=== PATIENT | female | born 1970 | race Caucasian/White ===

== ENCOUNTER → 2019-07-27 08:54 | Outpatient (CLI) | payer MEDICARE, MEDICAID, SELFPAY ==
--- NOTE | ~2019-07-27 | XR_ITS ---
XR cervical spine 4-5V 07/27/2019 09:25 Indication: Down's syndrome. Neck pain. Procedure: 4 views cervical spine Comparison: No prior study Findings: There is disc narrowing and endplate degenerative changes at C5-6. There is disc narrowing at C2-3. There is degenerative anterolisthesis at C3-4. There is mild multilevel facet hypertrophy. L elver apices are normal. Odontoid process within normal limits. Impression: 1: Moderate cervical spondylosis. Reviewed, dictated and finalized at location B. 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
== END ==
PROVIDERS: Visit Provider Family Medicine
DX: M47.812 Spondylosis without myelopathy or radiculopathy, cervical region (principal); Q90.9 Down syndrome, unspecified
CPT/HCPCS: 72050

== ENCOUNTER 2020-10-22 13:34 | Outpatient (CLI) | payer MEDICARE, MEDICAID, SELFPAY ==
--- NOTE | ~2020-10-22 | US_ITS ---
EXAMINATION: US venous doppler [facility] EXAM DATE: 10/22/2020 14:19 INDICATION: Edema, leg swelling. TECHNIQUE: Multiple grayscale, color flow and Doppler images of the left lower extremity deep venous system were obtained and reviewed. There is no prior study for comparison. FINDINGS: The left common femoral, femoral and profunda veins demonstrate normal color flow, respirat ory variation, augmentation and compressibility. Compressibility, color flow confirmed within the le ft popliteal, posterior tibial, peroneal, and greater saphenous veins. IMPRESSION: 1. No left lower extremity deep venous thrombosis. Reviewed, dictated and finalized at location B.
== END 2020-10-22 13:35 | disposition home or self-care (01) ==
PROVIDERS: Visit Provider Nurse Practitioner
DX: R60.9 Edema, unspecified (principal)
CPT/HCPCS: 93971

== ENCOUNTER 2021-06-20 23:01 | Emergency (ER) | payer MEDICARE, MEDICAID, SELFPAY ==
--- NOTE | ~2021-06-20 | XR_ITS ---
EXAMINATION: XR chest 1V portable DATE: 06/21/2021 00:22 INDICATION: Altered mental status. Jerking type movements. TECHNIQUE: A single frontal view of the chest was obtained. COMPARISON: Chest 2 views 10/06/2017 FINDINGS: There are airspace opacities in the right perihilar region and the lower lung zones. No ple ural effusion or pneumothorax. The heart size is normal. There is a left chest wall pacer with leads in the right atrium and right ventricle. IMPRESSION: 1. Airspace opacities in right perihilar region and the lower lung zones, consistent with atelectasis versus pneumonia. Reviewed, dictated and finalized at location A. HAND IMPRESSION: 1. Airspace opacities in right perihilar region and the lower lung zones, consi stent with atelectasis versus pneumonia.
--- NOTE | ~2021-06-20 | CT_ITS ---
EXAMINATION: CT brain wo con DATE: 06/21/2021 00:33 INDICATION: Altered mental status. TECHNIQUE: Computed tomography (CT) of the head was performed without intravenous contrast. The mA wa s adjusted according to patient size. Iterative reconstruction technique was employed. The dose-lengt h product was 529.67 mGy-cm. COMPARISON: None FINDINGS: There is no intracranial hemorrhage, acute infarction, or abnormal intracranial mass lesion . There is an arachnoid cyst posterior to the cerebellum measuring 6.3 x 2.1 x 3.6 cm. The ventricles are normal in size. The paranasal sinuses are clear. The orbits are normal. The mastoid air cells ar e normal. IMPRESSION: 1. Arachnoid cyst posterior to the cerebellum. Reviewed, dictated and finalized at location A. LE DATABASE CONSULTANT
[2021-06-20 23:04] VITALS: BP 97/65; PULSE 79; RESP 18; TEMP 36.6; O2SAT 98
--- NOTE | 2021-06-20 23:19 | ECG_ITS ---
Measurements Intervals [place] Rate: 80 P: 118 [place]: 168 QRS: 54 QRSD: 88 T: 46 QT: 382 QTc: 443 Interpretive Statements ELECTRONIC ATRIAL PACEMAKER MINIMAL Q WAVES- ANTEROLAT/INF LEADS BASELINE ARTIFACT- II, III, AVR, AVF, V1-V6 ATYPICAL ECG Electronically Signed On 06-21-2021 7:23:16 CHAIRMAN PRESIDENT AND CHIEF EXECUTIVE OFFICER by Jose GRANGER
[2021-06-20 23:46] LABS: Alveolar/Arterial O2 Gradient 38.4 mmHg; Base Excess ABG 4.2 mEq/l (+/-2.0); Fractional Inspired Oxygen 21 %; HCO3 ABG 29.3 mEq/l (22.0-26.0); Oxygen Content ABG 18.4 %vol (16.0-22.0); Oxyhemoglobin 90.4 % THb (90.0-100.0); PCO2 ABG 45.6 mmHg (35.0-45.0); PO2 ABG 56.7 mmHg (80.0-100.0); Total Hemoglobin 14.5 g/dL (12.0-18.0); pH ABG 7.426 (7.350-7.450)
[2021-06-20 23:47] LABS: Device ROOM AIR; Modified Allen's Test Pass; Site Drawn LEFT RADIAL
[2021-06-21] MEDS: SODIUM CHLORIDE 0.9% IV 1,000 ML 999 ML IV CONT (00:18)
[2021-06-21 00:23] LABS: Basophils Absolute Auto 0.1 K/mm3 (0.0-0.1); Basophils Percent Auto 1.5 % (0.2-1.2); Eosinophils Absolute Auto 0.1 K/mm3 (0-0.3); Eosinophils Percent Auto 1.2 % (0-4.4); Hematocrit 41.3 % (37.0-47.0); Hemoglobin 13.6 g/dL (12.0-15.0); Immature Granulocyte Absolute 0.01 K/mm3 (0.00-0.031); Immature Granulocyte Percent A 0.2 % (0-0.5); Lymphocytes Absolute Auto 3.34 K/mm3 (0.9-3.2); Lymphocytes Percent Auto 51.3 % (18.3-44.2); Mean Corpuscular HGB Conc 32.9 g/dl (32-36); Mean Corpuscular Hemoglobin 30.9 pg (26-34); Mean Corpuscular Volume 93.9 fl (80-100); Mean Platelet Volume 9.5 fl (7.4-10.4); Monocytes Absolute Auto 0.5 K/mm3 (0.1-0.6); Monocytes Percent Auto 8.1 % (2.6-8.5); Neutrophils Absolute Auto 2.5 K/mm3 (1.3-6.7); Neutrophils Percent Auto 37.7 % (45.5-73.1); Platelet Count Result 243 k/mm3 (150-375); Red Cell Distribution Width 14.2 % (11.5-14.5); White Blood Count 6.5 K/mm3 (4.5-10.0)
[2021-06-21 00:34] LABS: INR 1.1; Prothrombin Time 13.9 Seconds (11.1-14.7)
[2021-06-21 00:35] LABS: Partial Thromboplastin Time 29.7 SECONDS (22.3-36.8)
[2021-06-21 00:39] LABS: Alanine Aminotransferase 14 U/L (4-35); Alkaline Phosphatase 88 U/L (38-126); Anion Gap 6 mmol/L (8-16); Aspartate Amino Transferase 28 U/L (14-36); Bilirubin,Total 0.6 mg/dL (0.2-1.3); Blood Urea Nitrogen 15 mg/dL (7-17); Calcium 9.3 mg/dL (8.4-10.2); Carbon Dioxide 26 mmol/L (22-30); Chloride 107 mmol/L (98-107); Estimated Glomerular Filt Rate > 60; Glucose 95 mg/dL (65-110); Lactic Acid Reflex 0.6 mmol/L (0.7-2.1); Lipase 43 U/L (23-300); Magnesium 2.3 mg/dL (1.6-2.3); Potassium 3.9 mmol/L (3.4-5.0); Sodium 139 mmol/L (137-145)
[2021-06-21 00:50] LABS: Troponin I < 0.012 ng/mL (0.000-0.034)
[2021-06-21 00:58] VITALS: PULSE 78; RESP 14; O2SAT 100
--- NOTE | 2021-06-21 00:59 | PC.NURSE ---
RN placed straight cath on pt, minimal urine return observed, about 5ml of urine upon return, Pt also arrived with dry diaper from alf, RN will obtain urine sample upon adequate urine output.
[2021-06-21 01:00] VITALS: O2SAT 100
[2021-06-21 01:27] LABS: Add Urine Microscopic? YES; Appearance Urine Clear (Clear); Bacteria Urine Trace /hpf; Bilirubin Urine Negative (Negative); Blood Urine 2+ (Negative); Calcium Oxalate Crystals Urine Present /hpf; Color Urine Yellow (Yellow); Glucose Urine UA Negative (Negative); Ketones Urine Negative (Negative); Leukocyte Esterase Ur 1+ LEU/UL (Negative); Mucus Urine Rare /lpf; Nitrate Urine Negative (Negative); Protein Urine Negative (Negative); RBC Urine 21-50 /hpf (0-2); Specific Grav Ur 1.026 (1.001-1.035); Squamous Epithelial Cell Urine Many /hpf (Few); Urobilinogen Urine Negative mg/dL (<2.0); WBC Urine 21-30 /hpf
[2021-06-21 01:33] LABS: SARS-CoV-2 RNA PCR Negative
--- NOTE | 2021-06-21 02:53 | ED.GENADULT ---
HPI - General Adult General Chief complaint: Seizure Stated complaint: seizure-like activity Time Seen by Provider: 06/20/21 23:09 History of Present Illness HPI narrative: Patient is a 50-year-old female presents the emergency department with chief complaint of possible seizure. Patient is a resident of a local custodial and has reported history of seizures of which she has a as needed order for a benzodiazepine. Patient is currently not on any antiepileptics and apparently was seen at another facility for seizures recently. Per the custodial documentation the patient has history of nonepileptiform seizures. Patient currently has no complaints at this time and has had no seizure activity in the emergency department Related Data Home Medications Medication Instructions Recorded Confirmed aripiprazole 5 mg 06/21/21 Allergies Allergy/AdvReac Type Severity Reaction Status Date / Time No Known Allergies Allergy Verified 12/10/19 09:25 Review of Systems Review of Systems: A 10 system review of systems was completed on the patient and is negative except for what is stated in the HPI. Nursing and ancillary documentation was reviewed. PMFSH Past Medical History Medical History Depression Social History Social History Smoking status: Never smoker Alcohol intake: never Substance use: never Exam Narrative: GENERAL: Well-appearing, well-nourished, and in no acute distress. HEAD: Normocephalic, atraumatic. EYES: PERRLA and EOMI. ENT: Nares clear, no rhinorrhea or epistaxis. Mucous membranes moist. NECK: Supple. CHEST: Clear to auscultation. No respiratory distress. HEART: Regular rate and rhythm. No murmur heard. Normal peripheral pulses. ABDOMEN: Soft, nontender, nondistended, normal active bowel sounds. EXTREMITIES: Normal range of motion. No edema. SKIN: Warm, dry, no rash. NEURO: No focal deficits. Alert to baseline. PSYCH: Normal mood and affect. Course Course Emergency Course: Patient's laboratory studies do show evidence of a urinary tract infection. Otherwise labs are within normal limits. The patient has had no seizure activity in the emergency department Vital Signs Vital signs: Vital Signs Temperature 36.6 C 06/20/21 23:04 Pulse Rate 79 06/20/21 23:04 Respiratory Rate 18 06/20/21 23:04 Blood Pressure 97/65 L 06/20/21 23:04 Pulse Oximetry 98 06/20/21 23:04 Temperature 36.6 C 06/20/21 23:04 Pulse Rate 78 06/21/21 00:58 Respiratory Rate 14 06/21/21 00:58 Blood Pressure 97/65 L 06/20/21 23:04 Pulse Oximetry 100 06/21/21 01:00 Medical Decision Making Vital Signs Vital Signs: Vital Signs Temperature 36.6 C 06/20/21 23:04 Pulse Rate 79 06/20/21 23:04 Respiratory Rate 18 06/20/21 23:04 Blood Pressure 97/65 L 06/20/21 23:04 Pulse Oximetry 98 06/20/21 23:04 Temperature 36.6 C 06/20/21 23:04 Pulse Rate 78 06/21/21 00:58 Respiratory Rate 14 06/21/21 00:58 Blood Pressure 97/65 L 06/20/21 23:04 Pulse Oximetry 100 06/21/21 01:00 Lab Data Result diagrams: 06/21/21 00:09 06/21/21 00:09 Labs: Lab Results 06/21/21 06/21/21 06/21/21 Range/Units 00:09 00:09 00:09 WBC 6.5 (4.5-10.0) K/mm3 RBC 4.40 (4.2-5.4) M/mm3 Hgb 13.6 (12.0-15.0) g/dL Hct 41.3 (37.0-47.0) % MCV 93.9 (80-100) fl MCH 30.9 (26-34) pg MCHC 32.9 (32-36) g/dl RDW 14.2 (11.5-14.5) % Plt Count 243 (150-375) k/mm3 MPV 9.5 (7.4-10.4) fl Immature Gran % (Auto) 0.2 (0-0.5) % Neut % (Auto) 37.7 L (45.5-73.1) % Lymph % (Auto) 51.3 H (18.3-44.2) % [place] % (Auto) 8.1 (2.6-8.5) % Eos % (Auto) 1.2 (0-4.4) % Baso % (Auto) 1.5 H (0.2-1.2) % Lymph # (Auto) 3.34 H (0.9-3.2) K/mm3 [place] # (Auto) 0.5 (0.1-0.6) K/mm3 Eos
[2021-06-21] MEDS: CEPHALEXIN 500 MG CAPSULE PO (03:18)
--- NOTE | 2021-06-21 03:22 | PC.NURSE ---
[facility] called this ED to get update on pt condition. This RN spoke with ED MD, who reported that pt's test results looked good and the plan was to send her back to facility with instructions to f/u c pt's neurologist. no seizure-like activity noted during pt stay in ED.
--- NOTE | 2021-06-21 03:41 | PC.NURSE ---
called [facility] to request transport. ETA [id number]
--- NOTE | 2021-06-21 03:54 | PC.NURSE ---
called [facility] and [facility] to request transport. Neither Service available.
--- NOTE | 2021-06-21 05:47 | PC.NURSE ---
Pt continues awaiting for transport.
[2021-06-21 06:01] VITALS: BP 145/100; PULSE 76; RESP 14; TEMP 36.4; O2SAT 98
[2021-06-21 06:33] VITALS: BP 145/100; PULSE 84; RESP 14; TEMP 36.6; O2SAT 100
== END 2021-06-21 06:35 ==
PROVIDERS: Emergency Provider Emergency Medicine; PCP Family Medicine
DX: R56.9 Unspecified convulsions (principal); N30.00 Acute cystitis without hematuria; Z20.822 Contact with and (suspected) exposure to COVID-19; F32.A Depression, unspecified; Z95.0 Presence of cardiac pacemaker; R91.8 Other nonspecific abnormal finding of lung field; G93.0 Cerebral cysts
CPT/HCPCS: 36415; 36600; 70450; 71045; 80053; 81001; 81025; 82805; 83605; 83690; 83735; 84484; 85025; 85610; 85730; 87086; 87088; 93005; 96360; 99284; A9270; C9803; J7030; U0003; U0005

== ENCOUNTER 2021-07-15 15:24 | Inpatient (IN) | payer MEDICARE, MEDICAID, SELFPAY ==
--- NOTE | ~2021-07-15 | XR_ITS ---
EXAMINATION: XR chest 1V portable INDICATION: Cough TECHNIQUE: Portable AP chest at 1550 hours COMPARISON: 06/21/2021 FINDINGS: The lungs are free of acute opacities. There is no pleural effusion or pneumothorax. The ca rdiomediastinal silhouette is normal. A dual-lead cardiac pacemaker of the left chest wall ends with leads in expected locations. IMPRESSION: 1. No acute cardiopulmonary abnormality. Reviewed, dictated and finalized at location A. 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
[2021-07-15 15:24] VITALS: BP 104/53; PULSE 86; RESP 16; TEMP 36.9; O2SAT 100
--- NOTE | 2021-07-15 16:08 | ED.GENADULT ---
HPI - General Adult General Chief complaint: Unspecified Stated complaint: Request G Tube Placement Time Seen by Provider: 07/15/21 15:27 Source: EMS and RN notes reviewed Mode of arrival: EMS Limitations: dementia History of Present Illness HPI narrative: Patient is a 50-year-old female sent here for feeding tube placement. According to halfway staff patient has not been eating or drinking for the past few days, her PCP at the halfway recommended hospice but POA insisted on sending her to the hospital for feeding tube placement. Patient has a history of dementia and Down syndrome, unable to get any history from the patient. Related Data Home Medications Medication Instructions Recorded Confirmed albuterol sulfate 2 puff INHALATION QID 07/15/21 aripiprazole 5 mg PO DAILY 07/15/21 calcium carbonate-vit D3-min 1 tablet PO BID 07/15/21 cetirizine 10 mg PO DAILY 07/15/21 cholecalciferol (vitamin D3) 50 mcg PO DAILY 07/15/21 donepezil 5 mg PO HS 07/15/21 escitalopram oxalate 20 mg PO DAILY 07/15/21 fluticasone propionate [Flovent INHALATION 07/15/21 Diskus] [id number]-rtptapbha-[id number] 1 inh INHALATION DAILY 07/15/21 [Trelegy Ellipta] levetiracetam [Keppra] 500 mg PO BID 07/15/21 lorazepam [Ativan] 0.5 mg PO BID PRN 07/15/21 melatonin 10 mg PO HS PRN 07/15/21 midodrine mg 07/15/21 mirtazapine 15 mg PO HS 07/15/21 pantoprazole [Protonix] 40 mg PO BID 07/15/21 sennosides-docusate sodium [Senna 1 tab-cap PO HS 07/15/21 Plus] Allergies Allergy/AdvReac Type Severity Reaction Status Date / Time No Known Allergies Allergy Verified 07/15/21 15:37 Review of Systems Review of Systems: All others negative All systems reviewed & are unremarkable except as noted in HPI and below PMFSH Past Medical History Medical History Depression Social History Social History Smoking status: Never smoker Alcohol intake: never Substance use: never Comments Past medical history: Dementia, Down syndrome, seizure Family history: Unknown Social history: Lives at a halfway Exam Const: General: alert and awake; No ill appearing Nutritional Appearance: well nourished Limitations: other limitations (Dementia, Down syndrome, unable to follow any commands) HENMT: Head: normal to inspection, normocephalic and atraumatic Ears: hearing grossly normal bilaterally, TM normal on the right and TM normal on the left General nose exam: Normal external nose present, Normal nares present and No nasal discharge present Face and sinus: normal facial exam Mouth: Yes lip normal Eyes: General: appearance normal, both eyes and all related structures Pupils: Equal, round and reactive pupils present EOM: EOMs intact bilaterally Neck: Neck: normal visual inspection and full ROM Chest: Chest palpation & inspection: normal inspection of the chest Resp: Effort & Inspection: normal respiratory effort, able to speak in complete sentences, no respiratory distress and not tachypneic Auscultation: clear to auscultation bilaterally, no crackles, no rales, no rhonchi and no wheezes Cardio: Rate: regular rate Rhythm: regular rhythm GI: Inspection: normal to inspection GI Palp: No abdominal tenderness, Yes Soft to palpation, No Tenderness to palpation present (GI), No Guarding due to palpation present (GI), No Rigid due to palpation and No Rebound tenderness present Auscultation: normal bowel sounds Skin: General skin exam: elasticity normal and turgor normal Neuro: General: tone normal, moves all extremities and Normal light touch and pain sensation Cranial nerves: Yes Equal, round and reactive pupils present Speech: No Abnormal speech present Sensory Exam: No Sensory deficit (Neuro) Extrem: General: normal to inspection, full ROM and capillary refill normal Psych: Appearance: grossly normal and well
[2021-07-15] MEDS: SODIUM CHLORIDE 0.9% IV 1,000 ML 999 ML IV CONT (16:33)
[2021-07-15 16:38] LABS: Basophils Absolute Auto 0.1 K/mm3 (0.0-0.1); Basophils Percent Auto 1.1 % (0.2-1.2); Eosinophils Percent Auto 0.2 % (0-4.4); Hematocrit 51.5 % (37.0-47.0); Hemoglobin 16.2 g/dL (12.0-15.0); Immature Granulocyte Absolute 0.02 K/mm3 (0.00-0.031); Immature Granulocyte Percent A 0.2 % (0-0.5); Lymphocytes Absolute Auto 2.43 K/mm3 (0.9-3.2); Lymphocytes Percent Auto 25.5 % (18.3-44.2); Mean Corpuscular HGB Conc 31.5 g/dl (32-36); Mean Corpuscular Hemoglobin 30.5 pg (26-34); Mean Corpuscular Volume 96.8 fl (80-100); Mean Platelet Volume 10.2 fl (7.4-10.4); Monocytes Absolute Auto 0.8 K/mm3 (0.1-0.6); Monocytes Percent Auto 8.2 % (2.6-8.5); Neutrophils Absolute Auto 6.2 K/mm3 (1.3-6.7); Neutrophils Percent Auto 64.8 % (45.5-73.1); Platelet Count Result 229 k/mm3 (150-375); Red Blood Count 5.32 M/mm3 (4.2-5.4); Red Cell Distribution Width 14.8 % (11.5-14.5); White Blood Count 9.5 K/mm3 (4.5-10.0)
[2021-07-15 16:44] LABS: Add Urine Microscopic? YES; Appearance Urine Clear (Clear); Bacteria Urine Trace /hpf; Bilirubin Urine Negative (Negative); Blood Urine Negative (Negative); Color Urine Amber (Yellow); Glucose Urine UA Negative (Negative); Ketones Urine Negative (Negative); Leukocyte Esterase Ur Negative LEU/UL (Negative); Mucus Urine Rare /lpf; Nitrate Urine Negative (Negative); Protein Urine 1+ mg/dL (Negative); Squamous Epithelial Cell Urine Rare /hpf (Few); WBC Urine 0-3 /hpf
[2021-07-15 16:48] LABS: Specific Grav Ur 1.032 (1.001-1.035)
[2021-07-15 16:49] LABS: Alanine Aminotransferase 38 U/L (4-35); Albumin Level 4.4 g/dL (3.5-5.1); Alkaline Phosphatase 86 U/L (38-126); Anion Gap 8 mmol/L (8-16); Aspartate Amino Transferase 36 U/L (14-36); Bilirubin,Total 0.8 mg/dL (0.2-1.3); Blood Urea Nitrogen 27 mg/dL (7-17); Calcium 9.2 mg/dL (8.4-10.2); Carbon Dioxide 31 mmol/L (22-30); Chloride 110 mmol/L (98-107); Estimated Glomerular Filt Rate > 60; Glucose 109 mg/dL (65-110); Potassium 3.9 mmol/L (3.4-5.0); Sodium 149 mmol/L (137-145)
[2021-07-15 17:45] VITALS: BP 104/60; PULSE 80; RESP 16; O2SAT 98
--- NOTE | 2021-07-15 18:30 | PM.IMHP ---
H&P: HPI History of Present Illness Date/Time: 07/15/21 18:30 Chief Complaint: Refusing water and food for several days. Narrative: This is a 50-year-old female with dementia, Downs syndrome, seizure disorder, obstructive sleep apnea, and hypertension who presented to the emergency department via EMS from [facility] for evaluation after she has been refusing water and food for several days. She is a poor historian and gives limited history and as such almost all of the following is obtained via a review of her electronic medical records. Staff at the shelter spoke with the patient's power of trial attorney regarding possible hospice care however family members wanted her sent to the hospital to be evaluated for possible G-tube placement. Vital signs have been stable since arrival to the emergency department. Pertinent labs include evidence of hemoconcentration with hemoglobin and hematocrit of 16.2 and 51.5% respectively. BUN and sodium were both mildly elevated. She did test positive for SARS-CoV-2 by PCR and she is being admitted in this setting. At the time of my evaluation she is alert and oriented to self only. She complains of a mild headache and tells me that she is thirsty. She cannot and does not relate any other complaints. Physical exam was relatively unremarkable Review of Systems Review of Systems: Unable to assess given clinical condition as detailed above. [facility] Past Medical History Medical History (Updated 07/15/21 @ 21:17 by Marnie Black PA-C) Asthma Dementia Depression Down syndrome Obstructive sleep apnea Seizure disorder Surgical History Surgical History (Updated 07/15/21 @ 21:04 by Marnie Black PA-C) History of cardiac pacemaker Family History Family History (Updated 07/15/21 @ 21:04 by Marnie Black PA-C) Other Unknown family medical history Social History Social History (Updated 07/15/21 @ 21:07 by Marnie Black PA-C) Social History: CODE STATUS: Full code Smoking status: Never smoker Alcohol intake: never Substance use: never Meds Home Medications and Allergies Home Medications Medication Instructions Recorded Confirmed Type albuterol sulfate 2 puff INHALATION QID 07/15/21 History aripiprazole 5 mg PO DAILY 07/15/21 History calcium carbonate-vit D3-min 1 tablet PO BID 07/15/21 History cetirizine 10 mg PO DAILY 07/15/21 History cholecalciferol (vitamin D3) 50 mcg PO DAILY 07/15/21 History donepezil 5 mg PO HS 07/15/21 History escitalopram oxalate 20 mg PO DAILY 07/15/21 History fluticasone propionate [Flovent INHALATION 07/15/21 History Diskus] [id number]-fhbvjixtp-xfwrcxjz 1 inh INHALATION DAILY 07/15/21 History [Trelegy Ellipta] levetiracetam [Keppra] 500 mg PO BID 07/15/21 History lorazepam [Ativan] 0.5 mg PO BID PRN 07/15/21 History melatonin 10 mg PO HS PRN 07/15/21 History midodrine mg 07/15/21 History mirtazapine 15 mg PO HS 07/15/21 History pantoprazole [Protonix] 40 mg PO BID 07/15/21 History sennosides-docusate sodium [Senna 1 tab-cap PO HS 07/15/21 History Plus] Allergies Allergy/AdvReac Type Severity Reaction Status Date / Time No Known Allergies Allergy Verified 07/15/21 15:37 Vital Signs Vital Signs - 24 hr 07/15/21 15:24 07/15/21 17:45 Temperature 98.5 F Pulse Rate 86 80 Respiratory Rate 16 16 Blood Pressure 104/53 L 104/60 Pulse Oximetry 100 98 Exam Narrative: General: Mildly ill-appearing female supine in bed. HEENT: PERRL, EOMI. Sclerae anicteric. Dry mucous membranes. Small growth on the tip of the right part of the tongue. Oropharynx crowded and not visualized Neck: Supple. Exam difficult due to positioning. Respiratory: Respirations are nonlabored. Lung sounds diminished due to poor effort. Cardiovascular: Regular rate and rhythm with S1-S2. Gastrointestinal: Abdomen is soft, nontender, and nondistended with positive bowel sounds. Skin: Warm and dry. Generalized pa
[2021-07-15 19:58] LABS: SARS-CoV-2 RNA PCR Positive
[2021-07-15] MEDS: LACTATED RINGERS 1,000 ML 125 ML IV CONT (20:28)
[2021-07-15 21:19] VITALS: BP 91/51; PULSE 89; RESP 18; TEMP 36.9; O2SAT 98
[2021-07-15 23:15] VITALS: BP 104/64; PULSE 80; RESP 18; TEMP 36.1; O2SAT 96; BMI 24.9
[2021-07-16] VITALS (8 sets, daily range): BP systolic 85–144; BP diastolic 45–89; PULSE 70–90; RESP 18–20; TEMP 35.8–37.6; O2SAT 93–100
[2021-07-16 00:02] LABS: Anion Gap 6 mmol/L (8-16); Blood Urea Nitrogen 22 mg/dL (7-17); Calcium 8.7 mg/dL (8.4-10.2); Carbon Dioxide 27 mmol/L (22-30); Chloride 114 mmol/L (98-107); Estimated CRCL calculation 73 ml/min; Estimated Glomerular Filt Rate > 60; Glucose 104 mg/dL (65-110); Magnesium 2.4 mg/dL (1.6-2.3); Potassium 3.3 mmol/L (3.4-5.0); Sodium 147 mmol/L (137-145)
[2021-07-16] MEDS: DEXTROSE 5% 1,000 ML 1,000 ML 60 ML IV CONT (00:38)
--- NOTE | 2021-07-16 01:08 | ADMGEN ---
This patient, Lindsay Hoffmann, was admitted to 3 [facility] Surg Room 322-01. Patient/family oriented to hospital policies and general routines including ID bracelet, bed and alarms, visiting hours, pain management, procedures, bathroom and other care routines, personal items, smoking policy, room service/diet, and visiting hours. Information on how to activate the Rapid Response Team has been discussed. Patient/Family are encouraged to report perceived risks to care and to ask questions if they do not understand what they are told or what they should do.
[2021-07-16] MEDS: KCL 20 MEQ/SW 100 ML 100 ML 50 MEQ IVPB (01:14)
--- NOTE | 2021-07-16 01:25 | PC.NURSE ---
[facility] reports that patient is a kerri lift into the wheelchair, mechanical soft diet, total feeder,often noncompliant with wearing cpap at night.
[2021-07-16] MEDS: WATER FOR IRRIGATION, STERILE 1,000 ML BOTTLE 1000 ML (05:14)
[2021-07-16 06:48] LABS: Hematocrit 44.7 % (37.0-47.0); Hemoglobin 13.2 g/dL (12.0-15.0); Mean Corpuscular HGB Conc 29.5 g/dl (32-36); Mean Corpuscular Hemoglobin 30.9 pg (26-34); Mean Corpuscular Volume 104.7 fl (80-100); Mean Platelet Volume 10.8 fl (7.4-10.4); Platelet Count Result 161 k/mm3 (150-375); Red Blood Count 4.27 M/mm3 (4.2-5.4); White Blood Count 4.5 K/mm3 (4.5-10.0)
[2021-07-16 06:58] LABS: Anion Gap 9 mmol/L (8-16); Blood Urea Nitrogen 21 mg/dL (7-17); Calcium 8.3 mg/dL (8.4-10.2); Carbon Dioxide 21 mmol/L (22-30); Chloride 115 mmol/L (98-107); Estimated CRCL calculation 86 ml/min; Estimated Glomerular Filt Rate > 60; Glucose 104 mg/dL (65-110); Potassium 3.8 mmol/L (3.4-5.0); Sodium 145 mmol/L (137-145)
--- NOTE | 2021-07-16 16:24 | PM.IMPN ---
Progress Note: A&P Assessment and Plan (1) COVID-19: Code(s): U07.1 - COVID-19 Status: Acute Assessment and Plan: COVID-19 positive No acute findings on chest x-ray and she has no oxygen requirements thus there is no indication for dexamethasone or remdesivir. (2) Dehydration: Code(s): E86.0 - Dehydration Status: Acute Assessment and Plan: With elevated BUN, mild hypernatremia, and hemoconcentration . Treated with IV fluids Looks hydrated today will stop IV fluids (3) Hypernatremia: Code(s): E87.0 - Hyperosmolality and hypernatremia Status: Acute Assessment and Plan: On admission corrected with dextrose that was provided overnight She actually ate quite good this morning needs to be fed. Will stop IV fluid today Reassess sodium level in the morning Needs to be fed regularly No indication of G-tube placement and external feeding at this time (4) Dementia: Code(s): F03.90 - Unspecified dementia without behavioral disturbance Status: Acute Assessment and Plan: Continue donepezil. (5) Seizure disorder: Code(s): G40.909 - Epilepsy, unspecified, not intractable, without status epilepticus Status: Acute Assessment and Plan: Continue levetiracetam. (6) Obstructive sleep apnea: Code(s): G47.33 - Obstructive sleep apnea (adult) (pediatric) Status: Acute Assessment and Plan: CPAP will be provided for the patient to use whilst hospitalized. (7) Asthma: Code(s): J45.909 - Unspecified asthma, uncomplicated Status: Acute Assessment and Plan: Not in acute exacerbation. Continue maintenance inhalers. Subjective Date/time seen: 07/16/21 16:24 Interval history: HPI:This is a 50-year-old female with dementia, Downs syndrome, seizure disorder, obstructive sleep apnea, and hypertension who presented to the emergency department via EMS from [facility] for evaluation after she has been refusing water and food for several days. She is a poor historian and gives limited history and as such almost all of the following is obtained via a review of her electronic medical records. Staff at the retirement spoke with the patient's power of estate attorney regarding possible hospice care however family members wanted her sent to the hospital to be evaluated for possible G-tube placement. Vital signs have been stable since arrival to the emergency department. Pertinent labs include evidence of hemoconcentration with hemoglobin and hematocrit of 16.2 and 51.5% respectively. BUN and sodium were both mildly elevated. She did test positive for SARS-CoV-2 by PCR and she is being admitted in this setting. At the time of my evaluation she is alert and oriented to self only. She complains of a mild headache and tells me that she is thirsty. She cannot and does not relate any other complaints. Physical exam was relatively unremarkable 07/16/2021 no overnight events. Patient intermittently crying and shouting. Was calmer during my evaluation and cooperative. Review of system could not be completed due to her mental status Review of Systems Review of Systems: ROS unobtainable: Yes unobtainable due to medical condition Exam Narrative: General: Comfortable not in acute distress, alert and awake HEENT: PERRL, EOMI. Sclerae anicteric. Dry mucous membranes. Small growth on the tip of the right part of the tongue. Neck: Supple. Nontender Respiratory: Respirations are nonlabored. Lung sounds diminished due to poor effort. Cardiovascular: Regular rate and rhythm with S1-S2. Gastrointestinal: Abdomen is soft, nontender, and nondistended with positive bowel sounds. Skin: Warm and dry. Generalized pallor. Extremities: No cyanosis or clubbing. Trace periankle edema bilaterally. Radial and pedal pulses intact. Neurological: Intermittently verbal response to verbal commands off and on, alert and awake speech is cl
[2021-07-16] MEDS: LORazepam (*CRX) 0.5 MG TABLET PO (16:41)
[2021-07-16] MEDS: levETIRAcetam 500 MG TABLET PO (18:42)
[2021-07-16] MEDS: PANTOPRAZOLE 40 MG TABLET PO (18:42)
[2021-07-16] MEDS: FLUTICASONE PROP 44 MCG (*SP) 10.6 GM 1 PUFF INHALATION (20:30)
[2021-07-16] MEDS: MIRTAZAPINE 15 MG TABLET PO (21:03)
[2021-07-16] MEDS: DONEPEZIL HCL 5 MG TABLET PO (21:03)
[2021-07-16] MEDS: SENNA/DOCUSATE SODIUM TABLET 1 TAB PO (21:03)
[2021-07-16] MEDS: MELATONIN 5 MG TABLET 10 MG PO (21:04)
[2021-07-16] MEDS: oxyCODONE HCL (*CRX) 2.5 MG TAB IR PO (21:05)
[2021-07-17 06:42] LABS: Basophils Absolute Auto 0.1 K/mm3 (0.0-0.1); Basophils Percent Auto 0.9 % (0.2-1.2); Eosinophils Percent Auto 0.7 % (0-4.4); Hematocrit 39.9 % (37.0-47.0); Hemoglobin 12.5 g/dL (12.0-15.0); Immature Granulocyte Absolute 0.02 K/mm3 (0.00-0.031); Immature Granulocyte Percent A 0.4 % (0-0.5); Lymphocytes Absolute Auto 2.04 K/mm3 (0.9-3.2); Lymphocytes Percent Auto 37.4 % (18.3-44.2); Mean Corpuscular HGB Conc 31.3 g/dl (32-36); Mean Corpuscular Hemoglobin 30.5 pg (26-34); Mean Corpuscular Volume 97.3 fl (80-100); Mean Platelet Volume 10.5 fl (7.4-10.4); Monocytes Absolute Auto 0.4 K/mm3 (0.1-0.6); Monocytes Percent Auto 7.7 % (2.6-8.5); Neutrophils Absolute Auto 2.9 K/mm3 (1.3-6.7); Neutrophils Percent Auto 52.9 % (45.5-73.1); Platelet Count Result 186 k/mm3 (150-375); Red Cell Distribution Width 14.4 % (11.5-14.5); White Blood Count 5.5 K/mm3 (4.5-10.0)
[2021-07-17 06:49] LABS: Alanine Aminotransferase 31 U/L (4-35); Albumin Level 2.8 g/dL (3.5-5.1); Alkaline Phosphatase 58 U/L (38-126); Anion Gap 7 mmol/L (8-16); Aspartate Amino Transferase 30 U/L (14-36); Bilirubin,Total 0.6 mg/dL (0.2-1.3); Blood Urea Nitrogen 19 mg/dL (7-17); Calcium 8.1 mg/dL (8.4-10.2); Carbon Dioxide 24 mmol/L (22-30); Chloride 109 mmol/L (98-107); Estimated CRCL calculation 63 ml/min; Estimated Glomerular Filt Rate > 60; Glucose 83 mg/dL (65-110); Potassium 4.2 mmol/L (3.4-5.0); Sodium 140 mmol/L (137-145)
[2021-07-17 07:16] LABS: Magnesium 2.3 mg/dL (1.6-2.3)
[2021-07-17 08:00] VITALS: BP 122/66; PULSE 80; RESP 18; TEMP 36.3; O2SAT 92
[2021-07-17] MEDS: FLUTICASONE PROP 44 MCG (*SP) 10.6 GM 1 PUFF INHALATION (08:00)
--- NOTE | 2021-07-17 08:04 | PCRCNOTE ---
ATTEMPTED TO ADMINISTER TRELOGY. PT. UNABLE TO PROPERLY DO DPI.
[2021-07-17] MEDS: MIDODRINE HCL 2.5 MG TABLET 5 MG PO (08:35)
[2021-07-17] MEDS: oxyCODONE HCL (*CRX) 2.5 MG TAB IR PO (08:35)
[2021-07-17] MEDS: levETIRAcetam 500 MG TABLET PO (08:35)
[2021-07-17] MEDS: SENNOSIDES 8.6 MG TABLET PO (08:36)
[2021-07-17] MEDS: ESCITALOPRAM OXALATE 10 MG TABLET 20 MG PO (08:36)
[2021-07-17] MEDS: LORATADINE 10 MG TABLET PO (08:36)
[2021-07-17] MEDS: LORazepam (*CRX) 0.5 MG TABLET PO (08:36)
[2021-07-17] MEDS: ARIPiprazole 5 MG TABLET PO (08:36)
[2021-07-17] MEDS: PANTOPRAZOLE 40 MG TABLET PO (08:36)
[2021-07-17] MEDS: CHOLECALCIFEROL 1,000 UNITS TABLET 2000 UNITS PO (08:37)
[2021-07-17 12:00] VITALS: BP 150/96; PULSE 87; RESP 20; TEMP 36.2; O2SAT 94
--- NOTE | 2021-07-17 13:47 | PM.DS ---
DS: Admitting Diagnosis Discharge Date 07/17/2021 Admitting Diagnosis Behavioral problems poor p.o. intake DS: Discharge Diagnosis Discharge Diagnosis (1) COVID-19: Code(s): U07.1 - COVID-19 Status: Acute Assessment and Plan: COVID-19 positive No acute findings on chest x-ray and she has no oxygen requirements thus there is no indication for dexamethasone or remdesivir. Continue precautions at the nursing facility until cleared per CDC guidelines (2) Dehydration: Code(s): E86.0 - Dehydration Status: Acute Assessment and Plan: With elevated BUN, mild hypernatremia, and hemoconcentration . Treated with IV fluids Stop IV fluids and monitor her labs with no recurrence of hypernatremia. She has also been eating well but has to be fed due to her underlying mental illness. No indication of G-tube placement and external feeding at this time This is been discussed with the nursing facility and a feeder has been arranged in the facility for her (3) Hypernatremia: Code(s): E87.0 - Hyperosmolality and hypernatremia Status: Acute Assessment and Plan: On admission corrected with dextrose that was provided overnight She actually ate quite good since then but is to be fed Stopped IV fluid recheck sodium level remains normal No indication of G-tube placement and external feeding at this time (4) Dementia: Code(s): F03.90 - Unspecified dementia without behavioral disturbance Status: Acute Assessment and Plan: Continue donepezil. (5) Seizure disorder: Code(s): G40.909 - Epilepsy, unspecified, not intractable, without status epilepticus Status: Acute Assessment and Plan: Continue levetiracetam. (6) Obstructive sleep apnea: Code(s): G47.33 - Obstructive sleep apnea (adult) (pediatric) Status: Acute Assessment and Plan: CPAP continued during the hospital stay (7) Asthma: Code(s): J45.909 - Unspecified asthma, uncomplicated Status: Acute Assessment and Plan: Not in acute exacerbation. Continue maintenance inhalers. DS: Summary Hospital Course Hospital Course: See above Time Spent with Patient Time attestation: Total time spent providing and/or coordinating discharge services: 40 minutes Exam Narrative: General: Comfortable not in acute distress, alert and awake HEENT: PERRL, EOMI. Sclerae anicteric. Dry mucous membranes. Small growth on the tip of the right part of the tongue. Neck: Supple. Nontender Respiratory: Respirations are nonlabored. Lung sounds diminished due to poor effort. Cardiovascular: Regular rate and rhythm with S1-S2. Gastrointestinal: Abdomen is soft, nontender, and nondistended with positive bowel sounds. Skin: Warm and dry. Generalized pallor. Extremities: No cyanosis or clubbing. Trace periankle edema bilaterally. Radial and pedal pulses intact. Neurological: Intermittently verbal response to verbal commands off and on, alert and awake speech is clear no facial asymmetry moving all extremities Psychiatric: Pleasantly confused and cooperative. DS: Data Data Completed and Pending Labs on day of discharge: Labs from last 24 hours 07/17/21 07/17/21 07/17/21 06:13 06:13 06:13 WBC 5.5 RBC 4.10 L Hgb 12.5 Hct 39.9 MCV 97.3 D MCH 30.5 MCHC 31.3 L RDW 14.4 Plt Count 186 MPV 10.5 H Immature Gran % (Auto) 0.4 Neut % (Auto) 52.9 Lymph % (Auto) 37.4 Faulk % (Auto) 7.7 Eos % (Auto) 0.7 Baso % (Auto) 0.9 Lymph # (Auto) 2.04 Faulk # (Auto) 0.4 Eos # (Auto) 0.0 Baso # (Auto) 0.1 Abs Immat Gran (auto) 0.02 Absolute Neuts (auto) 2.9 Absolute Nucleated RBC 0.0 Nucleated RBC % 0.0 Sodium 140 Potassium 4.2 Chloride 109 H Carbon Dioxide 24 Anion Gap 7 L BUN 19 H Creatinine 0.70 Estim Creat Clear Calc 63 Estimated GFR > 60 Glucose 83 Calcium
== END 2021-07-17 15:28 | DRG 178 ==
LOC: ANHED 17:40 → ANH3MEDSUR 20:41
PROVIDERS: Physician Assistant; Admitting Provider Internal Medicine; Emergency Provider Emergency Medicine; PCP Family Medicine; Visit Provider Internal Medicine
DX: U07.1 COVID-19 (principal); E87.0 Hyperosmolality and hypernatremia; F03.90 Unspecified dementia, unspecified severity, without behavioral disturbance, psychotic disturbance, mood disturbance, and anxiety; E86.0 Dehydration; R62.7 Adult failure to thrive; F32.A Depression, unspecified; G40.909 Epilepsy, unspecified, not intractable, without status epilepticus; G47.33 Obstructive sleep apnea (adult) (pediatric); I10 Essential (primary) hypertension; J45.909 Unspecified asthma, uncomplicated; Q90.9 Down syndrome, unspecified; Z95.0 Presence of cardiac pacemaker
CPT/HCPCS: 36415; 51701; 71045; 80048; 80053; 81001; 83735; 85025; 85027; 94640; 96361; 96365; 96366; 96368; 99285; A9270; C9803; G0378; J3480; J7030; J7070; J7120; U0003; U0005